=== PATIENT | female | born 1990 | race Caucasian/White ===

== ENCOUNTER 2016-11-12 09:17 | Emergency (ER) | payer OTHER | END 2016-11-12 11:26 | disposition left against medical advice (07) | LOC: UCEAST 09:17 | DX: T14.8 Other injury of unspecified body region (principal); W57.XXXA Bitten or stung by nonvenomous insect and other nonvenomous arthropods, initial encounter; Y93.9 Activity, unspecified; Y92.9 Unspecified place or not applicable; Z53.21 Procedure and treatment not carried out due to patient leaving prior to being seen by health care provider ==

== ENCOUNTER 2016-11-12 12:58 | Emergency (ER) | payer BC, OTHER ==
[2016-11-12 15:03] VITALS: BP 129/85
--- NOTE | 2016-11-12 15:17 | ED ---
Upper Extremity Pain - HPI Summary HPI Summary: 26F presents with lesion on right thumb since Tuesday. She states the area was itchy on Tuesday but she did not see a tick. She states the redness around the lesion. She denies any rash or fever. She did not see a tick but is concerned it was a tick bite. - History of Current Complaint Chief Complaint: UCSkin Stated Complaint: TICK BITE Time Seen by Provider: 11/12/16 15:05 Hx Last Menstrual Period: 11/04/16 - Allergies/Home Medications Allergies/Adverse Reactions: Allergies Allergy/AdvReac Type Severity Reaction Status Date / Time seasonal allergy Allergy Congestion Uncoded 06/02/14 16:00 Home Medications: Home Medications Multiple Vitamin [Multi Vitamin] 1 tab PO DAILY 11/12/16 [History Confirmed ] Vitamin B Complex TAB* [Complex B-100*] 1 tab PO DAILY 11/12/16 [History Confirmed 11/12/16] Vitamin D 1 tab PO DAILY 11/12/16 [History Confirmed 11/12/16] PMH/Surg Hx/FS Hx/Imm Hx Endocrine/Hematology History: Denies: Hx Diabetes, Hx Thyroid Disease Cardiovascular History: Denies: Hx Hypertension Respiratory History: Denies: Hx Asthma, Hx Chronic Obstructive Pulmonary Disease (COPD) GI History: Denies: Hx Ulcer - Surgical History Surgery Procedure, Year, and Place: ~2004 right inquinal hernia Infectious Disease History: No Infectious Disease History: Denies: Hx Clostridium Difficile, Hx Hepatitis, Hx Human Immunodeficiency Virus (HIV), Hx of Known/Suspected MRSA, Hx Shingles, Hx Tuberculosis, Hx Known/ Suspected VRE, Hx Known/Suspected VRSA, History Other Infectious Disease, Traveled Outside the [place] in Last 30 Days - Family History Known Family History: Positive: Hypertension - Social History Alcohol Use: Occasionally Substance Use Type: Reports: None Smoking Status (MU): Never Smoked Tobacco Review of Systems Negative: Fever Negative: Chest Pain Negative: Shortness Of Breath Positive: Other - lesion right thumb All Other Systems Reviewed And Are Negative: Yes Physical Exam Triage Information Reviewed: Yes Vital Signs On Initial Exam: Initial Vitals Temp Pulse Resp BP Pulse Ox 99.3 F 92 18 129/85 99 11/12/16 14:59 11/12/16 14:59 11/12/16 14:59 11/12/16 14:59 11/12/16 14:59 Vital Signs Reviewed: Yes Appearance: Positive: Well-Appearing Skin: Positive: Warm, Dry, Other - follicular lesion on right thumb with no surrounding erythema. Head/Face: Positive: Normal Head/Face Inspection Eyes: Positive: Normal, Conjunctiva Clear Respiratory/Lung Sounds: Positive: Clear to Auscultation, Breath Sounds Present Cardiovascular: Positive: Normal, RRR Diagnostics - Vital Signs Vital Signs Temp Pulse Resp BP Pulse Ox 11/12/16 14:59 99.3 F 92 18 129/85 99 - Laboratory Lab Statement: Any lab studies that have been ordered have been reviewed, and results considered in the medical decision making process. Course/Dx - Course Course Of Treatment: 26F presents with lesion on right thumb that is concerned is tick bite. She did not see a tick. the area was seen on Tuesday. the area appears like a folliculitis. It is also to far out of the window to treat if it was a tick bite. told to watch area and if sees rash to return. will have do warm compresses for folliculitis as surrounding area does not appear to be infected. patient understands and agrees with plan - Diagnoses Differential Diagnosis/HQI/PQRI: Positive: Other - lyme disease, folliculitis, bug bite, tick bite Provider Diagnoses: Skin lesion of hand Discharge - Discharge Plan Condition: Good Disposition: HOME Patient Education Materials: Folliculitis (ED) Referrals: Ascencion Villarreal MD [Primary Care Provider] - Additional Instructions: Place warm compresses on area Can place neosporin on area Return to Urgent care if redness spreads, develops ring like rash, fever, or any new or worsening symptoms
== END 2016-11-12 15:30 | disposition home or self-care (01) ==
LOC: UCEAST 12:58
DX: L98.9 Disorder of the skin and subcutaneous tissue, unspecified (principal)
CPT/HCPCS: 99211; G0463

== ENCOUNTER 2017-03-22 14:35 | Emergency (ER) | payer BC ==
[2017-03-22 15:02] VITALS: BP 140/81
--- NOTE | 2017-03-22 15:45 | UC ---
UC General HPI - HPI Summary HPI Summary: PT WOKE UP THIS MORNING AND FELT "OFF". OVER THE COURSE OF THE DAY STARTED TO FEEL WORSE. NECK AND BACK PAIN, FELT WEAK, NAUSEATED. HEAD WAS HEAVY. COULDN'T WALK UP THE STAIRS AT WORK. HAD TO SIT DOWN. ATE SOME YOGURT THINKING SHE WOULD FEEL BETTER IF SHE ATE SOMETHING - SHE DID NOT. PT DOES HAVE ANXIETY AND HAS PANIC ATTACKS ON OCCASION. SHE IS NOT ON MEDS FOR THIS. STATES THIS FELT DIFFERENT FROM HER ANXIETY. HAS BEEN ON VALTREX FOR GENITAL HSV FOR 2-3 DAYS. - History of Current Complaint Chief Complaint: UCGeneralIllness Stated Complaint: WEAKNESS Time Seen by Provider: 03/22/17 14:53 Hx Obtained From: Patient Hx Last Menstrual Period: 03/17/17 Onset/Duration: Sudden Onset, Lasting Hours, Still Present Timing: Constant Onset Severity: Moderate Current Severity: Moderate Pain Intensity: 5 Associated Signs & Symptoms: Positive: Nausea, Weakness - Allergy/Home Medications Allergies/Adverse Reactions: Allergies Allergy/AdvReac Type Severity Reaction Status Date / Time seasonal allergy Allergy Congestion Uncoded 06/02/14 16:00 PMH/Surg Hx/FS Hx/Imm Hx Psychological History: Anxiety - Surgical History Surgical History: Yes Surgery Procedure, Year, and Place: ~2004 right inquinal hernia - Family History Known Family History: Positive: Hypertension - Social History Alcohol Use: Occasionally Substance Use Type: None Smoking Status (MU): Never Smoked Tobacco - Immunization History Most Recent Tetanus Shot: Thinks so Review of Systems Constitutional: Fatigue Respiratory: Negative Cardiovascular: Negative Gastrointestinal: Nausea Genitourinary: Negative Motor: Weakness Neurological: Weakness Psychological: Anxious All Other Systems Reviewed And Are Negative: Yes Physical Exam Triage Information Reviewed: Yes Appearance: Well-Appearing, No Pain Distress, Well-Nourished Vital Signs: Initial Vital Signs Temp 98.0 F 03/22/17 14:55 Pulse 86 03/22/17 14:55 Resp 16 03/22/17 14:55 BP 140/81 03/22/17 14:55 Pulse Ox 100 03/22/17 14:55 Vital Signs Reviewed: Yes Eyes: Positive: Conjunctiva Clear ENT: Positive: Hearing grossly normal Neck: Positive: Supple Respiratory Exam: Normal Cardiovascular Exam: Normal Abdomen Description: Positive: Nontender, Soft Musculoskeletal: Positive: No Edema Neurological: Positive: Alert Psychological: Positive: Normal Response To Family, Age Appropriate Behavior Skin: Negative: rashes Diagnostics - EKG Cardiac Rate: NL Cardiac Rhythm: Sinus: Normal - borderline prolonged QT Ectopy: None ST Segment: Normal Course/Dx - Course Course Of Treatment: PT TO GO DIRECTLY [place] [facility] [place] FOR FURTHER EVALUATION. WOULD LIKELY BENEFIT FROM LABS, REPEAT EKG. EKG WITH BORDER LINE PROLONGED QT. IS TAKING VALTREX FOR GENITAL HSV. NO OTHER NEW MEDS. - Differential Dx - Multi-Symptom Provider Diagnoses: WEAKNESS/MALAISE Discharge - Discharge Plan Condition: Stable Disposition: OTHER Discharge Disposition Comment: TO [facility] PR[facility] CAR Patient Education Materials: Weakness (ED) Referrals: No Primary Care Phys,NOPCP [Primary Care Provider] - Additional Instructions: GO DIRECTLY TO [place] [facility] [place] FOR FURTHER EVALUATION. CALL THE NUMBER BELOW FOR ASSISTANCE IN ESTABLISHING WITH A PCP An additional resource available to assist in finding the appropriate physician for your health care needs is the [facility] ([facility]). You may contact them by calling [phone].
== END 2017-03-22 15:56 ==
LOC: UCEAST 14:35
DX: R53.1 Weakness (principal); R53.81 Other malaise; R11.0 Nausea; F41.9 Anxiety disorder, unspecified
CPT/HCPCS: 99212; G0463

== ENCOUNTER → 2017-03-22 16:38 | Emergency (ER) | payer BC ==
[~2017-03-22 16:38] MED LIST: NS 0.9% 1000 ML* 1,000 ML IV ONE
--- NOTE | 2017-03-22 19:12 | ED ---
Complex/Multi-Sys Presentation - History Of Current Complaint Chief Complaint: EDGeneral Time Seen by Provider: 03/22/17 18:08 - Allergies/Home Medications Allergies/Adverse Reactions: Allergies Allergy/AdvReac Type Severity Reaction Status Date / Time seasonal allergy Allergy Congestion Uncoded 03/22/17 18:03 PMH/Surg Hx/FS Hx/Imm Hx Endocrine/Hematology History: Denies: Hx Diabetes, Hx Thyroid Disease Cardiovascular History: Denies: Hx Hypertension Respiratory History: Denies: Hx Asthma, Hx Chronic Obstructive Pulmonary Disease (COPD) GI History: Denies: Hx Ulcer - Surgical History Surgery Procedure, Year, and Place: ~2004 right inquinal hernia Infectious Disease History: No Infectious Disease History: Denies: Hx Clostridium Difficile, Hx Hepatitis, Hx Human Immunodeficiency Virus (HIV), Hx of Known/Suspected MRSA, Hx Shingles, Hx Tuberculosis, Hx Known/ Suspected VRE, Hx Known/Suspected VRSA, History Other Infectious Disease, Traveled Outside the [place] in Last 30 Days - Family History Known Family History: Positive: Hypertension - Social History Alcohol Use: Occasionally Substance Use Type: Reports: None Smoking Status (MU): Never Smoked Tobacco Physical Exam Vital Signs On Initial Exam: Initial Vitals Temp Pulse Resp BP Pulse Ox 98.5 F 96 20 160/84 100 03/22/17 16:45 03/22/17 16:45 03/22/17 16:45 03/22/17 16:45 03/22/17 16:45 - [place] Coma Scale Coma Scale Total: 15 Diagnostics - Vital Signs Vital Signs Temp Pulse Resp BP Pulse Ox 03/22/17 18:37 17 03/22/17 18:36 131/94 03/22/17 18:00 98.5 F 83 16 149/76 99 03/22/17 16:45 98.5 F 96 20 160/84 100 - Laboratory Result Diagrams: 03/22/17 19:21 03/22/17 19:21 Lab Statement: Any lab studies that have been ordered have been reviewed, and results considered in the medical decision making process. - EKG EKG Cardiac Rate: NL EKG Rhythm: Sinus Rhythm ST Segment: Normal Ectopy: None EKG Interpretation: NSR, short AR interval, No STEMI Complex Multi-Symp Course/Dx - Diagnoses Provider Diagnoses: Weakness, Panic attack Discharge - Discharge Plan Condition: Stable Disposition: HOME Patient Education Materials: Weakness (ED), Panic Attack (ED) Referrals: [facility] REFERRAL [Outside] No Primary Care Phys,NOPCP [Primary Care Provider] - Additional Instructions: Drink plenty of fluids and rest. Make an appointment to follow up with primary care provider. IF new symptoms develop or symptoms return/worsen please seek medical attention promptly.
[2017-03-22 19:28] LABS: Hematocrit 43 % (35-47); Hemoglobin 14.5 g/dl (12.0-16.0); Mean Corpuscular HGB Conc 33 g/dl (31-36); Mean Corpuscular Hemoglobin 28 pg (27-31); Mean Corpuscular Volume 84 fL (80-97); Mean Platelet Volume 8 um3 (7.4-10.4); Red Blood Count 5.16 10^6/ul (4.0-5.4); Red Cell Distribution Width 13 % (10.5-15); White Blood Count 12.5 10^3/ul (3.5-10.8)
[2017-03-22 19:52] LABS: ALT 15 U/L (7-52); AST 14 U/L (13-39); Albumin 4.6 g/dL (3.2-5.2); Alkaline Phosphatase 93 U/L (34-104); Anion Gap 8 mmol/L (2-11); BUN/Creatinine Ratio 16.2 (8-20); Blood Urea Nitrogen 12 mg/dL (6-24); CO2 Carbon Dioxide 27 mmol/L (22-32); Calcium 10.1 mg/dL (8.6-10.3); Chloride 101 mmol/L (101-111); EGFR African American 121.1 (>60); EGFR Non-African American 94.1 (>60); Globulin 3.2 g/dL (2-4); Glucose 102 mg/dL (70-100); Potassium 3.9 mmol/L (3.5-5.0); Sodium 136 mmol/L (133-145); Total Protein 7.8 g/dL (6.4-8.9)
[2017-03-22 20:05] LABS: TSH (Thyroid Stimulating Horm) 1.16 mcIU/mL (0.34-5.60)
[2017-03-22 20:42] VITALS: BP 147/97
== END | disposition home or self-care (01) ==
LOC: ED 16:38
DX: F41.0 Panic disorder [episodic paroxysmal anxiety] (principal); R53.1 Weakness; R42 Dizziness and giddiness
CPT/HCPCS: 36415; 80053; 83735; 84443; 84484; 84702; 85025; 86618; 93005; 99282

== ENCOUNTER → 2017-08-30 12:34 | Emergency (ER) | payer BC ==
[2017-08-30 12:40] VITALS: BP 157/94
== END | disposition home or self-care (01) ==
LOC: ED 12:34
DX: R11.0 Nausea (principal); Z53.21 Procedure and treatment not carried out due to patient leaving prior to being seen by health care provider
CPT/HCPCS: 93005

== ENCOUNTER 2017-09-13 09:24 | Emergency (ER) | payer BC ==
--- NOTE | 2017-09-13 11:03 | UC ---
FLU HPI - HPI Summary HPI Summary: 27 y/o female presents to the urgent care c/o sore throat, dry cough, nasal congestion w/ clear nasal discharge, since 09/09/2017. Pt reports yesterday she developed decrease appetite, fatigue and body aches. She feels a burning pain in her mid chest when she coughs. Pain is 4/10. Pt has taken Coricidin and cough drops to alleviate symptoms. pt denies SOB, chest pain, abdominal pain, N/ V/D. - History of Current Complaint Chief Complaint: UCGeneralIllness Stated Complaint: COUGH, AND CHEST CONGESTION Time Seen by Provider: 09/13/17 10:47 Hx Obtained From: Patient Hx Last Menstrual Period: 08/24/17 ?: No Onset/Duration: Gradual Onset, Lasting Days - 3 days, Still Present, Worse Since - yesterday Severity Currently: Mild Severity Initially: Mild Pain Intensity: 4 Pain Scale Used: 0-10 Numeric Associated Signs & Symptoms: Positive: Myalgia, Cough, Sore Throat, Nasal Congestion. Negative: Fever - Risk Factors Influenza Risk Factors: Negative - Allergy/Home Medications Allergies/Adverse Reactions: Allergies Allergy/AdvReac Type Severity Reaction Status Date / Time seasonal allergy Allergy Congestion Uncoded 09/13/17 09:43 Home Medications: Home Medications Cholecalciferol TAB* [Vitamin D TAB*] 1 tab PO DAILY 09/13/17 [History Confirmed 09/13/17] Cyanocobalamin (Vitamin B-12) [Vitamin B-12] 1 tab PO DAILY 09/13/17 [History Confirmed 09/13/17] Lisdexamfetamine Dimesylate [Vyvanse] 1 tab PO DAILY 09/13/17 [History Confirmed 09/13/17] Multivitamin [Multivitamins] 1 tab PO DAILY 09/13/17 [History Confirmed 09/13/17 ] Sertraline* [Zoloft*] 1 tab PO BEDTIME 09/13/17 [History Confirmed 09/13/17] buPROPion TAB* [Wellbutrin TAB*] 300 mg PO DAILY 09/13/17 [History Confirmed ] PMH/Surg Hx/FS Hx/Imm Hx Previously Healthy: Yes Psychological History: Anxiety, Depression Other Psychological History: ADHD - Surgical History Surgical History: Yes Surgery Procedure, Year, and Place: 2005 right inquinal hernia - Family History Known Family History: Positive: Hypertension, Diabetes - Social History Occupation: Employed Full-time Lives: With Family Alcohol Use: Occasionally Substance Use Type: None Smoking Status (MU): Never Smoked Tobacco - Immunization History Most Recent Tetanus Shot: Thinks so Review of Systems Constitutional: Chills, Fatigue, Other - body aches Skin: Negative Eyes: Negative ENT: Sore Throat, Nasal Discharge, Sinus Congestion Respiratory: Cough Cardiovascular: Negative Gastrointestinal: Negative Genitourinary: Negative Motor: Negative Neurovascular: Negative Musculoskeletal: Negative Neurological: Headache Is Patient Immunocompromised?: No All Other Systems Reviewed And Are Negative: Yes Physical Exam Triage Information Reviewed: Yes Vital Signs: Initial Vital Signs Temp 99.3 F 09/13/17 09:47 Pulse 106 09/13/17 09:47 Resp 22 09/13/17 09:47 BP 141/92 09/13/17 09:47 Pulse Ox 100 09/13/17 09:47 - Additional Comments VITAL SIGNS: Reviewed. GENERAL: Patient is a well developed and nourished female who is sitting comfortable in the examining table. Patient is not in any acute respiratory distress. HEAD AND FACE: No signs of trauma. No ecchymosis, hematomas or skull depressions. No sinus tenderness. edematous erythematous nasal mucosa with yellowish discharge, EYES: PERRLA, EOMI x 2, No injected conjunctiva, clear watery eyes, no nystagmus. No photophobia. EARS: Hearing grossly intact. Ear canals and tympanic membranes are within normal limits. MOUTH: Positive pharynx with erythema, no exudates,no palatal petechiae. no B/ L tonsillar enlargement Uvula in midline. NECK: Supple, trachea is midline, Positive anterior cervical lymphadenopathy, no JVD, no carotid bruit, no c-spine tenderness, neck with full ROM. No meningeal signs, no Kernig's or brudzinskis signs. CHEST: Symmetric, no tenderness at palpation LUNGS: Clear to auscultation bilaterally. No wheezing or crackles. CVS: Regular rate and rhythm, S1 and S2 present, no murmurs or gallops appreciated. ABDOMEN: Soft, non-tender. No signs of distention. No rebound no guarding, and no masses palpated. Bowel sounds are normal. EXTREMITIES: FROM in all major joints, no edema, no cyanosis or clubbing. NEURO: Alert and oriented x 3. No acute neurological deficits. Speech is normal and follows commands. SKIN: Dry and warm Flu Course/Dx - Course Course Of Treatment: 27 y/o female presents to the urgent care c/o sore throat, dry cough, nasal congestion w/ clear nasal discharge, since 09/09/2017. Pt reports yesterday she developed decrease appetite, fatigue and body aches. She feels a burning pain in her mid chest when she coughs. Pain is 4/10. Pt has taken Coricidin and cough drops to alleviate symptoms. pt denies SOB, chest pain , abdominal pain, N/V/D. Hx obtained.Pt with URI on examination. Rapid strep ordered, result: negative.Influenza A&B ordered: negative.Pt W/ hx of GERD. Pt RX Omeprazole PO to alleviate symptoms. Advised to continue taking Tylenol PO. Advised on hand washin, rest, increase fluid intake, eat well and avoid strenuous exercise. If symptoms do not improve or worsen advised to return to the urgent care or f/u with her PCP for further evaluation and treatment.Pt's BP is elevated today advised to decrease salt in diet, monitor BP and f/u with PCP for further management. Pt understood and agreed with plan of care. - Differential Dx/Diagnosis Differential Diagnosis/HQI/PQRI: Bronchitis, Influenza, Pneumonia, Upper Respiratory Infection Provider Diagnoses: 1- Upper respiratory infection. 2-GERD. 3-Elevated BP w/o Hx of HTN Discharge - Discharge Plan Condition: Stable Disposition: HOME Prescriptions: Omeprazole CAP* [Prilosec CAP* 20 MG] 20 mg PO DAILY #30 cap. Patient Education Materials: Upper Respiratory Infection (ED), Gastroesophageal Reflux Disease (ED), Low-Sodium Diet (ED) Forms: *Work Release Referrals: Mira John NP [Primary Care Provider] - 3 Days Additional Instructions: 1-Please take Tyelenol PO q6-8hrs prn as instructed after meals to alleviate pain and swelling of your throat. Increase fluid intake, eat well, rest and avoid strenuous exercise 2-Take Omprazole PO as directed to alleviate symptoms. Avoid long period w/o eating anything. avoid spicy food, chocolates, tomato sauce, citrus fruits etc. 3-Take Delsym PO to alleviate cough. 4-If symptoms do not improve or worsen please return to the urgent care or f/u with your PCP for further evaluation and treatment. 5-Your BP is elevated today. please decrease salt in your diet, monitor BP and if it continues to be elevated please f/u with your PCP for further management
[2017-09-13 12:02] VITALS: BP 143/80
== END 2017-09-13 12:01 | disposition home or self-care (01) ==
LOC: UCEAST 09:24
DX: J06.9 Acute upper respiratory infection, unspecified (principal); K21.9 Gastro-esophageal reflux disease without esophagitis; R03.0 Elevated blood-pressure reading, without diagnosis of hypertension; F90.9 Attention-deficit hyperactivity disorder, unspecified type; F41.9 Anxiety disorder, unspecified; F32.9 Major depressive disorder, single episode, unspecified
CPT/HCPCS: 87502; 87651; 99212; G0463

== ENCOUNTER 2018-03-20 07:54 | Emergency (ER) | payer BC ==
[2018-03-20 08:06] VITALS: BP 136/80
--- NOTE | 2018-03-20 08:16 | UC ---
Abdominal Pain Female HPI - HPI Summary HPI Summary: This pt is a 27 y/o female accompanied by her fiance presenting to [facility] c/o abdominal pain, nausea, intermittent diarrhea for the past 3 days. Pt reports she has had constant diarrhea and abd pain since 03:00 today. Diarrhea is not bloody or black. Pt describes her abd pain initially as cramping diffusely but today her pain is more constant, described as "twisting" uncomfortable pain mostly located on the lower are of her abd. She additionally notes bloating and chills between hot and cold, but she has not taken her temperature. Pt took Tums last night with no relief. Denies dysuria, vaginal discharge or itching, new back pain, sinus pain, ear pain. She denies recent out of the country travel or sick contacts. No recent antibiotics. Pt drinks alcohols 2 to 3 times a week. She is getting on . She is currently on her period and denies concerns for . Patients medication reviewed this visit. - History of Current Complaint Chief Complaint: UCAbdominalPain Stated Complaint: NAUGSEA Time Seen by Provider: 03/20/18 08:09 Hx Obtained From: Patient, Family/Coverer - fiance Hx Last Menstrual Period: now Onset/Duration: Lasting Days - 3, Still Present Timing: Constant Severity Currently: Moderate Pain Intensity: 6 Pain Scale Used: 0-10 Numeric Location: Suprapubic Radiates: No Character: Cramping Aggravating Factor(s): Nothing Alleviating Factor(s): Nothing Associated Signs and Symptoms: Positive: Nausea, Diarrhea - intermittent, Other : - POSITIVE: chills, bloating. Negative: Fever, Back Pain - denies new back pain, Blood in Stool, Urinary Symptoms, Vaginal Bleeding, Vaginal Discharge, Vomiting Allergies/Adverse Reactions: Allergies Allergy/AdvReac Type Severity Reaction Status Date / Time seasonal allergy Allergy Congestion Uncoded 03/20/18 08:26 PMH/Surg Hx/FS Hx/Imm Hx Previously Healthy: Yes Psychological History: Anxiety, Depression - Surgical History Surgical History: Yes Surgery Procedure, Year, and Place: 2004 right inquinal hernia - Family History Known Family History: Positive: Hypertension, Diabetes Family History: Mother: fibroids. Aunt: ruptured ovarian cyst - Social History Occupation: Employed Full-time Alcohol Use: Occasionally Substance Use Type: None Smoking Status (MU): Never Smoked Tobacco - Immunization History Most Recent Tetanus Shot: Thinks so Review of Systems Constitutional: Chills, Other - DENIES: fever Skin: Negative Eyes: Negative ENT: Negative Respiratory: Negative Cardiovascular: Negative Gastrointestinal: Abdominal Pain, Diarrhea, Nausea, Other - POS: bloating. NEG: vomiting Genitourinary: Negative Motor: Negative Neurovascular: Negative Musculoskeletal: Negative Neurological: Negative Psychological: Negative All Other Systems Reviewed And Are Negative: Yes Physical Exam - Summary Physical Exam Summary: Vital Signs Reviewed: Yes A+Ox3, tired appearing, discomfort Eyes: Conjunctiva Clear, JILL. EOM intact and full ENT: Hearing grossly normal TM x 2 clear, mmpasty, uvula midline, no exudate, no erythema Neck: Positive: Supple Respiratory: Positive: No respiratory distress, No accessory muscle use + CTA throughout no w/r Cardiovascular: RRR nl s1, s2 no m/r CBT <2 sec abd soft +/decreased BS + TTP lower quads R>L no guarding, soft obvious discomfort with movement, position change Musculoskeletal Exam: SANDERS x 4 without difficulty Strength Intact, ROM Intact Neurological: Positive: Alert, + sensation throughout Psychological: Positive: Normal Response To Family Skin: Positive: no rash, no ecchymosis, pallor Triage Information Reviewed: Yes Vital Signs: Initial Vital Signs Temp 98.9 F 03/20/18 08:04 Pulse 86 03/20/18 08:04 Resp 18 03/20/18 08:04 BP 136/80 03/20/18 08:04 Pulse Ox 100 03/20/18 08:04 Abd Pain Female Course/Dx - Course Course Of Treatment: Pt presents with 3 days progressiv nausea, abd pain, and diarrhea. Pt states progressive and steady since 3am. No relief with Tums. no sick contact. No others with same sx. Pt with pallor and appears uncomfortable. Pt with diffuse lower abd pain R>L. D/w pt and fiance - recommend pt to ED for further evaluation. pt aware evaluation will be ad discretion of ED provider. Fiancee to drive Pt declines Zofran. - Differential Dx/Diagnosis Provider Diagnoses: Acute abdominal pain Discharge - Sign-Out/Discharge Documenting (check all that apply): Patient Departure - discharge All imaging exams completed and their final reports reviewed: No Studies - Discharge Plan Condition: Stable Disposition: HOME-RECOMMEND TO ED Patient Education Materials: Acute Abdominal Pain (ED) Referrals: Mira John NP [Primary Care Provider] - Additional Instructions: The doctor that evaluated you today thinks that you need additional testing that can be completed the emergency department. It is recommended that you go directly to emergency department for further evaluation. This evaluation may include blood work or imaging. This testing will be directed and decided by the provider that evaluates you at the emergency department. If pain becomes worse, you feel lightheaded, you have uncontrolled vomiting, or you have any other concerns while you are being driven to emergency department as recommended to pullover and contact 911. - Billing Disposition and Condition Condition: STABLE Disposition: Home-Recommend to ED - Attestation Statements Document Initiated by Lucia: Yes Documenting Scribe: Jacinda Rodriguez Provider For Whom Lucia is Documenting (Include Credential): Charlee Pryor MD Scribe Attestation: Jacinda Strickland, scribed for Charlee Pryor MD on 03/20/18 at 0829. Scribe Documentation Reviewed: Yes Provider Attestation: The documentation as recorded by the Jacinda bertrand accurately reflects the service I personally performed and the decisions made by me, Charlee Pryor MD
== END 2018-03-20 08:25 | disposition home health service (06) ==
LOC: UCEAST 07:54
DX: R10.30 Lower abdominal pain, unspecified (principal); R11.0 Nausea; R19.7 Diarrhea, unspecified
CPT/HCPCS: 99212; G0463

== ENCOUNTER 2018-03-20 08:46 | Emergency (ER) | payer BC ==
[2018-03-20] MEDS ORDERED: NS 0.9% 1000 ML* 1,000 ML IV ONE ×2 (09:45→10:48)
[2018-03-20 09:58] LABS: ABS Basophils 0 10^3/ul (0-0.2); ABS Eosinophils 0 10^3/ul (0-0.6); ABS Lymphocytes 1.3 10^3/ul (1.0-4.8); ABS Monocytes 0.6 10^3/ul (0-0.8); ABS Neutrophils 6.9 10^3/ul (1.5-7.7); ABS Nucleated RBC 0 10^3/ul; Eosinophil % 0.3 % (0-6); Hematocrit 48 % (35-47); Hemoglobin 15.8 g/dl (12.0-16.0); Lymphocyte % 14.9 % (25-47); Mean Corpuscular HGB Conc 33 g/dl (31-36); Mean Corpuscular Hemoglobin 29 pg (27-31); Mean Corpuscular Volume 87 fL (80-97); Mean Platelet Volume 7.4 um3 (7.4-10.4); Nucleated Red Blood Cells % 0.2; Platelet Count 330 10^3/ul (150-450); Red Blood Count 5.44 10^6/ul (4.00-5.40); Red Cell Distribution Width 12 % (10.5-15); White Blood Count 8.8 10^3/ul (3.5-10.8)
[2018-03-20 10:16] LABS: EGFR Non-African American 99.6 (>60)
[2018-03-20 10:17] LABS: Urine Appearance Clear; Urine Blood 1+ (Negative); Urine Color Straw; Urine Ketones Negative (Negative); Urine Protein Negative (Negative); Urine Red Blood Cell Trace(0-2/hpf) (Absent); Urine Specific Gravity 1.004 (1.010-1.030); Urine Urobilinogen Negative (Negative); Urine White Blood Cell Absent (Absent)
[2018-03-20 12:16] VITALS: BP 117/63
--- NOTE | 2018-03-20 17:48 | ED ---
Nausea/Vomiting/Diarrhea HPI - HPI Summary HPI Summary: Patient is a 27-year-old female presenting to the ED with a 3 day history of profuse watery diarrhea. She denies sick contacts, water contamination, travel , camping trips or immunocompromised state. She states she has been feeling otherwise well. She takes no medication and has not been on antibiotics recently. She states she began to have profuse diarrhea 3 days ago upon awakening and has been having approximately 20-30 bouts per day. She also feels dehydrated. She denies any nausea, vomiting. Endorses cramping to the abdomen and bloating. Denies any urinary symptoms or back pain. Denies any fevers, sweats, chills. - History of Current Complaint Chief Complaint: EDAbdPain Stated Complaint: ABD PAIN/MORE ON LEFT SIDE/NAUSEOUS Time Seen by Provider: 03/20/18 09:20 Hx Obtained From: Patient Hx Last Menstrual Period: now ?: No Onset/Duration: Sudden Onset Timing: Constant Severity Initially: Mild Severity Currently: Mild Pain Intensity: 3 Pain Scale Used: 0-10 Numeric Character: Cramping Aggravating Factor(s): Nothing Alleviating Factor(s): Nothing Nausea/Vomiting Presence: None Diarrhea Presence: Yes Diarrhea Frequency: Every 15-60 minutes Diarrhea Duration: 24-36 hours Diarrhea Characteristics: Watery, Malodorous - Risk Factors Influenza Risk Factors: Negative Surgical Obstruction Risk Factor(s): Negative - Allergies/Home Medications Allergies/Adverse Reactions: Allergies Allergy/AdvReac Type Severity Reaction Status Date / Time seasonal allergy Allergy Congestion Uncoded 03/20/18 09:22 PMH/Surg Hx/FS Hx/Imm Hx Previously Healthy: Yes Endocrine/Hematology History: Denies: Hx Diabetes, Hx Thyroid Disease Cardiovascular History: Denies: Hx Hypertension Respiratory History: Denies: Hx Asthma, Hx Chronic Obstructive Pulmonary Disease (COPD) GI History: Denies: Hx Ulcer - Surgical History Surgery Procedure, Year, and Place: 2004 right inquinal hernia - Immunization History Hx Pertussis Vaccination: No Immunizations Up to Date: Yes Infectious Disease History: No Infectious Disease History: Denies: Hx Clostridium Difficile, Hx Hepatitis, Hx Human Immunodeficiency Virus (HIV), Hx of Known/Suspected MRSA, Hx Shingles, Hx Tuberculosis, Hx Known/ Suspected VRE, Hx Known/Suspected VRSA, History Other Infectious Disease, Traveled Outside the [place] in Last 30 Days - Family History Known Family History: Positive: Hypertension, Diabetes Family History: Mother: fibroids. Aunt: ruptured ovarian cyst - Social History Occupation: Employed Full-time Lives: With Family Alcohol Use: Occasionally Hx Substance Use: No Substance Use Type: Reports: None Hx Tobacco Use: No Smoking Status (MU): Never Smoked Tobacco Review of Systems Constitutional: Negative Negative: Fever, Chills, Fatigue, Skin Diaphoresis Negative: Palpitations, Chest Pain Negative: Shortness Of Breath, Cough Positive: Abdominal Pain, Diarrhea. Negative: Vomiting, Nausea Genitourinary: Negative Positive: no symptoms reported, see HPI Negative: Arthralgia, Myalgia Skin: Negative Neurological: Negative All Other Systems Reviewed And Are Negative: Yes Physical Exam Triage Information Reviewed: Yes Vital Signs On Initial Exam: Initial Vitals Temp Pulse Resp BP Pulse Ox 97.4 F 81 19 125/61 97 03/20/18 08:54 03/20/18 08:54 03/20/18 08:54 03/20/18 08:54 03/20/18 08:54 Vital Signs Reviewed: Yes Appearance: Positive: Well-Appearing, Well-Nourished Skin: Positive: Warm, Skin Color Reflects Adequate Perfusion Head/Face: Positive: Normal Head/Face Inspection Eyes: Positive: EOMI, JILL, Conjunctiva Clear Neck: Positive: Supple Respiratory/Lung Sounds: Positive: Clear to Auscultation, Breath Sounds Present Cardiovascular: Positive: RRR, Pulses are Symmetrical in both Upper and Lower Extremities Abdomen Description: Positive: Soft, Distended Bowel Sounds: Positive: Hyperactive Pelvic Exam: Positive: Other - Tenderness throughout and bloating Musculoskeletal: Positive: Normal, Strength/ROM Intact Neurological: Positive: Alert, Oriented to Person Place, Time Psychiatric: Positive: Normal, Affect/Mood Appropriate Diagnostics - Vital Signs Vital Signs Temp Pulse Resp BP Pulse Ox 03/20/18 12:15 97.9 F 78 18 117/63 99 03/20/18 11:00 74 99 03/20/18 10:12 71 98 03/20/18 10:10 72 122/72 97 03/20/18 08:54 97.4 F 81 19 125/61 97 - Laboratory Lab Results: Lab Results 03/20/18 03/20/18 03/20/18 Range/Units 09:46 09:46 09:46 WBC 8.8 (3.5-10.8) 10^3/ul RBC 5.44 H (4.00-5.40) 10^6/ul Hgb 15.8 (12.0-16.0) g/dl Hct 48 H (35-47) % MCV 87 (80-97) fL MCH 29 (27-31) pg MCHC 33 (31-36) g/dl RDW 12 (10.5-15) % Plt Count 330 (150-450) 10^3/ul MPV 7.4 (7.4-10.4) um3 Neut % (Auto) 77.7 (38-83) % Lymph % (Auto) 14.9 L (25-47) % [place] % (Auto) 6.9 (0-7) % Eos % (Auto) 0.3 (0-6) % Baso % (Auto) 0.2 (0-2) % Absolute Neuts (auto) 6.9 (1.5-7.7) 10^3/ul Absolute Lymphs (auto) 1.3 (1.0-4.8) 10^3/ul Absolute Monos (auto) 0.6 (0-0.8) 10^3/ul Absolute Eos (auto) 0 (0-0.6) 10^3/ul Absolute Basos (auto) 0 (0-0.2) 10^3/ul Absolute Nucleated RBC 0 10^3/ul Nucleated RBC % 0.2 Sodium 134 L (135-145) mmol/L Potassium TNP Chloride 107 (101-111) mmol/L Carbon Dioxide 22 (22-32) mmol/L Anion Gap 5 (2-11) mmol/L BUN 12 (6-24) mg/dL Creatinine 0.70 (0.51-0.95) mg/dL Est GFR ( Amer) 120.6 (>60) Est GFR (Non-Af Amer) 99.6 (>60) BUN/Creatinine Ratio 17.1 (8-20) Glucose 101 H (70-100) mg/dL Lactic Acid 1.4 (0.5-2.0) mmol/L Calcium 9.1 (8.6-10.3) mg/dL Total Bilirubin 0.20 (0.2-1.0) mg/dL AST TNP ALT 29 (7-52) U/L Alkaline Phosphatase 72 (34-104) U/L C-Reactive Protein 11.08 H (<8.01) mg/L Total Protein 7.1 (6.4-8.9) g/dL Albumin 4.3 (3.2-5.2) g/dL Globulin 2.8 (2-4) g/dL Albumin/Globulin Ratio 1.5 (1-3) Lipase 18 (11.0-82.0) U/L Beta HCG, Quant < 0.60 mIU/mL Urine Color Urine Appearance Urine pH (5-9) Ur Specific [place] (1.010-1.030) Urine Protein (Negative) Urine Ketones (Negative) Urine Blood (Negative) Urine Nitrate (Negative) Urine Bilirubin (Negative) Urine Urobilinogen (Negative) Ur Leukocyte Esterase (Negative) Urine WBC (Auto) (Absent) Urine RBC (Auto) (Absent) Ur Squamous Epith Cells (Absent) Urine Bacteria (Absent) Urine Glucose (Negative) 03/20/18 03/20/18 Range/Units 09:47 10:25 WBC (3.5-10.8) 10^3/ul RBC (4.00-5.40) 10^6/ul Hgb (12.0-16.0) g/dl Hct (35-47) % MCV (80-97) fL MCH (27-31) pg MCHC (31-36) g/dl RDW (10.5-15) % Plt Count (150-450) 10^3/ul MPV (7.4-10.4) um3 Neut % (Auto) (38-83) % Lymph % (Auto) (25-47) % [place] % (Auto) (0-7) % Eos % (Auto) (0-6) % Baso % (Auto) (0-2) % Absolute Neuts (auto) (1.5-7.7) 10^3/ul Absolute Lymphs (auto) (1.0-4.8) 10^3/ul Absolute Monos (auto) (0-0.8) 10^3/ul Absolute Eos (auto) (0-0.6) 10^3/ul Absolute Basos (auto) (0-0.2) 10^3/ul Absolute Nucleated RBC 10^3/ul Nucleated RBC % Sodium (135-145) mmol/L Potassium TNP Chloride (101-111) mmol/L Carbon Dioxide (22-32) mmol/L Anion Gap (2-11) mmol/L BUN (6-24) mg/dL Creatinine (0.51-0.95) mg/dL Est GFR ( Amer) (>60) Est GFR (Non-Af Amer) (>60) BUN/Creatinine Ratio (8-20) Glucose (70-100) mg/dL Lactic Acid (0.5-2.0) mmol/L Calcium (8.6-10.3) mg/dL Total Bilirubin (0.2-1.0) mg/dL AST TNP ALT (7-52) U/L Alkaline Phosphatase (34-104) U/L C-Reactive Protein (<8.01) mg/L Total Protein (6.4-8.9) g/dL Albumin (3.2-5.2) g/dL Globulin (2-4) g/dL Albumin/Globulin Ratio (1-3) Lipase (11.0-82.0) U/L Beta HCG, Quant mIU/mL Urine Color Straw Urine Appearance Clear Urine pH 7.0 (5-9) Ur Specific [place] 1.004 L (1.010-1.030) Urine Protein Negative (Negative) Urine Ketones Negative (Negative) Urine Blood 1+ A (Negative) Urine Nitrate Negative (Negative) Urine Bilirubin Negative (Negative) Urine Urobilinogen Negative (Negative) Ur Leukocyte Esterase Negative (Negative) Urine WBC (Auto) Absent (Absent) Urine RBC (Auto) Trace(0-2/hpf) (Absent) Ur Squamous Epith Cells Present A (Absent) Urine Bacteria Absent (Absent) Urine Glucose Negative (Negative) Result Diagrams: 03/20/18 09:46 03/20/18 10:25 Lab Statement: Any lab studies that have been ordered have been reviewed, and results considered in the medical decision making process. Naus/Vom/Diarrhea Course/Dx - Course Course Of Treatment: During the course treatment the patient is evaluated for profuse watery diarrhea 20-30 per day over the past 3 days. Patient also is endorsing cramping to the abdomen and dehydration. Stool culture positive for C. difficile. Patient is given metronidazole 500 mg 3 times a day 10 days. She is to continue to rehydrate as much as possible. - Differential Dx/Diagnosis Provider Diagnoses: C. difficile Condition At Discharge: Stable Discharge - Sign-Out/Discharge Documenting (check all that apply): Patient Departure - Discharge Plan Condition: Stable Disposition: HOME Prescriptions: metroNIDAZOLE [Flagyl 500 MG TAB] 500 mg PO TID #30 tab Patient Education Materials: Acute Diarrhea (ED), Nutrition Tips for Relief of Diarrhea (ED) Forms: *Work Release Referrals: Mira John NP [Primary Care Provider] - Additional Instructions: Will call with any results of the stool culture which would require antibiotics. If your symptoms fail to improve in 2-3 days, return to the ED immediately - Billing Disposition and Condition Condition: STABLE Disposition: Home
== END 2018-03-20 12:15 | disposition home or self-care (01) ==
LOC: ED 08:46
DX: E86.0 Dehydration (principal); A04.72 Enterocolitis due to Clostridium difficile, not specified as recurrent
CPT/HCPCS: 36415; 80053; 81003; 81015; 83605; 83630; 83690; 84702; 85025; 86140; 87045; 87046; 87329; 87493; 87899; 96360; 96361; 99283

== ENCOUNTER 2018-05-26 16:58 | Emergency (ER) | payer BC ==
[2018-05-26 17:06] VITALS: BP 147/89
--- NOTE | 2018-05-26 17:09 | UC ---
Skin Complaint HPI - HPI Summary HPI Summary: 27 y/o female presents to the urgent care c/o rash in her left axilla since 04/17. Pt states for the past week it has increased in size and w/ some crusting discharge. She felt some joint stiffness in her left fingers, specially in the middle finger yesterday. She took Ibuprofen 400mg PO and then symptoms resolved. Pt states when she shaves rash increases in size. She has mild pain at touch 2/10. Pt denies fever, JIMENEZ, dizziness, SOB, chest pain, abdominal pain, N/V/d. She has applied hydrocortisone topical cream w/o any improvement. - History of Current Complaint Chief Complaint: UCSkin Time Seen by Provider: 05/26/18 17:08 Stated Complaint: RASH Hx Obtained From: Patient Hx Last Menstrual Period: NOW ?: No Onset/Duration: Gradual Onset, Lasting Weeks - 4 weeks, Still Present, Worse Since - last week Skin Exposure Onset/Duration: Weeks Ago - 4-5 weeks Timing: Constant Onset Severity: Mild Current Severity: Mild Pain Intensity: 1 Pain Scale Used: 0-10 Numeric Location: Discrete - left axilla Character: Pruritus, Pain - mild at touch, Redness Aggravating Factor(s): Touch, Other - shaving Alleviating Factor(s): OTC Meds Associated Signs & Symptoms: Positive: Rash, Tenderness - mild. Negative: Nausea, Vomiting, Numbness, Fever, Chills, Drainage Related History: Other: - shaving - Allergy/Home Medications Allergies/Adverse Reactions: Allergies Allergy/AdvReac Type Severity Reaction Status Date / Time seasonal allergy Allergy Congestion Uncoded 05/26/18 17:06 Home Medications: Home Medications Control* 1 tab PO DAILY 05/26/18 [History Confirmed 05/26/18] LORazepam TAB(*) [Ativan 0.5 MG TAB (*)] PRN 05/26/18 [History] Review of Systems All Other Systems Reviewed And Are Negative: Yes Constitutional: Positive: Negative Skin: Positive: Rash - left axilla w/ redness and crusting yellowish discharge Eyes: Positive: Negative ENT: Positive: Negative Respiratory: Positive: Negative Cardiovascular: Positive: Negative Gastrointestinal: Positive: Negative Genitourinary: Positive: Negative Motor: Positive: Negative Neurovascular: Positive: Negative Musculoskeletal: Positive: Negative Neurological: Positive: Negative Psychological: Positive: Negative Is Patient Immunocompromised?: No PMH/Surg Hx/FS Hx/Imm Hx Previously Healthy: Yes - Pt denies PMHX - Surgical History Surgical History: Yes Surgery Procedure, Year, and Place: 2004 right inquinal hernia - Family History Known Family History: Positive: Hypertension, Diabetes Family History: Mother: fibroids, arthritis. Aunt: ruptured ovarian cyst - Social History Occupation: Employed Full-time Lives: With Family Alcohol Use: Occasionally Substance Use Type: None Smoking Status (MU): Never Smoked Tobacco - Immunization History Most Recent Tetanus Shot: Thinks so Physical Exam - Summary Physical Exam Summary: Vital Signs Reviewed: Yes General: well developed, well nourished obese female sitting in the examining table w/o any apparent distress. Eyes: Positive: Conjunctiva Clear - PERRLA, EOMI ENT: Positive: Normal ENT inspection, Hearing grossly normal, Pharynx normal, TMs normal Neck: Positive: Supple, Nontender, No Lymphadenopathy Respiratory: Positive: Chest nontender, Lungs clear, Normal breath sounds Cardiovascular: Positive: RRR, No Murmur, Pulses Normal Abdomen Description: Positive: Nontender, No Organomegaly, Soft. Negative: CVA Tenderness (R), CVA Tenderness (L) Bowel Sounds: Positive: Present Musculoskeletal: Positive: Strength Intact, ROM Intact, No Edema Neurological Exam: Normal Psychological Exam: Normal Skin: Positive: rashes - Left axilla w/ erythematous patch around hair follicles w/ indistinct borders, warm to touch, mild tender to palpation. FROM of lef shoulder, no lymphadenopathy Triage Information Reviewed: Yes Vital Signs: Initial Vital Signs Temp 98.3 F 05/26/18 17:02 Pulse 83 05/26/18 17:02 Resp 16 05/26/18 17:02 BP 147/89 05/26/18 17:02 Pulse Ox 100 05/26/18 17:02 Course/Dx - Course Course Of Treatment: 27 y/o female presents to the urgent care c/o rash in her left axilla since 04/17/2018. Pt states for the past week it has increased in size and w/ some crusting discharge. She felt some joint stiffness in her left fingers, specially in the middle finger yesterday. She took Ibuprofen 400mg PO and then symptoms resolved. Pt states when she shaves rash increases in size. She has mild pain at touch 2/10. Pt denies fever, JIMENEZ, dizziness, SOB, chest pain , abdominal pain, N/V/d. She has applied hydrocortisone topical cream w/o any improvement. Hx obtained. Pt w/ left axilla follicultis on examination. Pt Rx Keflex PO, bactroban topical cream. Pt Advised to avoid shaving and to f/u her apt next week w/ Dr Galvez if not improvemetn of symptoms. Pt BP today elevated w/o Hx of HTN. Pt advised to decrease salt in diet and monitor BP at home if it continues to be elevated to f/u with PCP for further management. D/c instructions explained. Pt understood and agreed w/ plan of care.. - Differential Diagnoses - Skin Complaint Differential Diagnoses: Abscess, Cellulitis, Contact Dermatitis, MRSA, Tinea, Urticaria, Other - folliculitis - Diagnoses Provider Diagnoses: 1- Left axilla folliculitis. 2- Elevated BP w/o Hx of HTN Discharge - Sign-Out/Discharge Documenting (check all that apply): Patient Departure - D/c home All imaging exams completed and their final reports reviewed: No Studies - Discharge Plan Condition: Stable Disposition: HOME Prescriptions: Cephalexin CAP* [Keflex CAP*] 500 mg PO TID #21 cap Mupirocin 2% OINT* [Bactroban 2 % Oint*] 1 applic TOPICAL BID #1 tube Patient Education Materials: Folliculitis (ED), Low-Sodium Diet (ED) Referrals: Mira John NP [Primary Care Provider] - 1 Week Lizette Galvez [Medical Doctor] - 1 Week Additional Instructions: 1-Please take full course of Antibiotic to avoid resistance. Apply Bactroban topical cream as directed to alleviate rash 2-Avoid shaving until symptoms resolve. keep area clean and dry. Avoid strenuous exercise or swimming until symptoms resolve 3-Please F/u with your appt w/ Law Office Manager DR Galvez in 1 week if not improvement of symptoms for further evaluation and treatment. 4-Your BP is elevated today. please decrease salt in your diet, monitor BP and if it continues to be elevated please f/u with your PCP for further management - Billing Disposition and Condition Condition: STABLE Disposition: Home
== END 2018-05-26 17:35 | disposition home or self-care (01) ==
LOC: UCEAST 16:58
DX: L73.9 Follicular disorder, unspecified (principal); R03.0 Elevated blood-pressure reading, without diagnosis of hypertension; Z91.048 Other nonmedicinal substance allergy status
CPT/HCPCS: 99212; G0463

== ENCOUNTER 2018-05-29 10:03 | Emergency (ER) | payer BC ==
[2018-05-29 10:16] VITALS: BP 125/82
--- NOTE | 2018-05-29 11:03 | UC ---
Eye Complaint HPI - HPI Summary HPI Summary: Patient presents with a past medical history of allergies. She does not take any medications for her allergies. She complains of eye irritation and runny nose. She states in addition she woke up with left eye redness, and drainage this morning. She denies any eye pain, change in vision, or vesicular lesions. - History of Current Complaint Chief Complaint: UCEye Stated Complaint: EYE COMPLAINT Time Seen by Provider: 05/29/18 10:48 Hx Obtained From: Patient Hx Last Menstrual Period: NOW Onset/Duration: Gradual Onset, Lasting Hours Timing: Hours Severity Initially: Mild Severity Currently: Mild Pain Intensity: 3 Aggravating Factor(s): Blinking Alleviating Factor(s): Nothing Associated Signs And Symptoms: Positive: Drainage (Purulent) - Risk Factors Penetrating Injury Risk Factor: Negative Globe Rupture Risk Factors: Negative Acute Glaucoma Risk Factors: Eye Inflammation Optic Artery Occlusion Risk Factors: Negative - Allergies/Home Medications Allergies/Adverse Reactions: Allergies Allergy/AdvReac Type Severity Reaction Status Date / Time seasonal allergy Allergy Congestion Uncoded 05/29/18 10:16 PMH/Surg Hx/FS Hx/Imm Hx Previously Healthy: Yes - Surgical History Surgical History: Yes Surgery Procedure, Year, and Place: 2004 right inquinal hernia - Family History Known Family History: Positive: Hypertension, Diabetes Family History: Mother: fibroids, arthritis. Aunt: ruptured ovarian cyst - Social History Occupation: Employed Full-time Lives: Alone Alcohol Use: Occasionally Substance Use Type: None Smoking Status (MU): Never Smoked Tobacco - Immunization History Most Recent Tetanus Shot: Thinks so Review of Systems All Other Systems Reviewed And Are Negative: Yes Constitutional: Positive: Negative Skin: Positive: Negative Eyes: Positive: Drainage, Eye Redness ENT: Positive: Nasal Discharge, Sinus Congestion Respiratory: Positive: Negative Cardiovascular: Positive: Negative Gastrointestinal: Positive: Negative Genitourinary: Positive: Negative Motor: Positive: Negative Neurovascular: Positive: Negative Musculoskeletal: Positive: Negative Neurological: Positive: Negative Psychological: Positive: Negative Physical Exam Triage Information Reviewed: Yes Appearance: Well-Appearing Vital Signs: Initial Vital Signs Temp 98.2 F 05/29/18 10:13 Pulse 92 05/29/18 10:13 Resp 18 05/29/18 10:13 BP 125/82 05/29/18 10:13 Pulse Ox 100 05/29/18 10:13 Vital Signs Reviewed: Yes Eyes: Positive: Conjunctiva Inflamed, Other: - sclera with injection of lateral aspect. no lid swelling. nontender periorbit processes. ENT Exam: Normal Dental Exam: Normal Neck exam: Normal Neck: Positive: 1 Respiratory Exam: Normal Cardiovascular Exam: Normal Abdominal Exam: Normal Musculoskeletal Exam: Normal Neurological Exam: Normal Psychological Exam: Normal Skin Exam: Normal Eye Complaint Course/Dx - Course Course Of Treatment: Patient presents with conjunctivits and will be treated with polytrim eye drops as directed and told that if her symtpoms do not improve she would have to either go to her doctor or return to the clinic at once for re-evaluation. She verbalized understanding of and in agreement with the discharge plan. - Differential Dx/Diagnosis Differential Diagnosis/HQI/PQRI: Conjunctivitis Provider Diagnoses: conjunctivitis Discharge - Sign-Out/Discharge Documenting (check all that apply): Patient Departure All imaging exams completed and their final reports reviewed: No Studies - Discharge Plan Condition: Stable Disposition: HOME Prescriptions: Polymyx/Trimethoprim OPTH* [Polytrim OPHTH*] 1 drop LEFT EYE Q3H #1 btl Patient Education Materials: Conjunctivitis (ED) Referrals: Mira John NP [Primary Care Provider] - Ascencion Hilton MD [Medical Doctor] - Additional Instructions: If your symptoms do not improve as anticipated you will need to follow up immediately. - Billing Disposition and Condition Condition: STABLE Disposition: Home - Attestation Statements Scribe Documentation Reviewed: No Provider Attestation: Per institutional requirements, I have reviewed the chart, however, I was not consulted specifically or made aware of this patient by the midlevel provider. I did not personally evaluate, interact with , or disposition this patient.
== END 2018-05-29 11:04 | disposition home or self-care (01) ==
LOC: UCEAST 10:03
DX: H10.9 Unspecified conjunctivitis (principal); Z91.048 Other nonmedicinal substance allergy status
CPT/HCPCS: 99212; G0463

== ENCOUNTER 2018-07-16 16:57 | Emergency (ER) | payer BC ==
--- OUTSIDE RECORDS SUMMARY | 2018-07-16 17:02 | XMS REPORT ---
:1990 External Reference #:[id number] Author Organization [facility] Address [address] [place] [address] Phone [phone] Care Team Providers Name Role Phone Gilma Kraus M.D. Care Team Information Cloth Washer Unavailable Gilma Kraus M.D. Primary Care Physician Unavailable Payers Type Date Identification Numbers Payment Provider Subscriber Commercial Effective: Policy Number: [employer] Kirstie Murphy 2016 [id number] PayID: [id number] [place] [address] Problems Description No Information Family History Date Family Member(s) Problem(s) Comments Father No Current Problems Mother Cyst Of Breast Paternal Grandfather Diabetes Mellitus, II Paternal Grandfather Hypertension Paternal Grandmother Depression Maternal Grandfather due to CO () - late 50s Maternal Grandmother Diabetes Mellitus, II Social History Type Date Description Comments Marital Status Single Lives With Boyfriend Sleep Typically sleeps 6 hours a night Work Status Full-Time Employment Cigarette Use Never Smoked Cigarettes ETOH Use Occasional Recreational Drug Use Never Used Drugs Smoking Patient has never smoked Seat Belt/Car Seat Always uses seat belt Currently Active Patient is currently sexually active STD's HSV2 STD's HPV STD's [facility] Allergies, Adverse Reactions, Alerts Date Description Reaction Status Severity Comments 04/01/2017 NKDA active Medications Medication Date Status Form Strength Qnty SIG Indications Ordering Provider Abilify 05/26/ Active Tablets 2mg 30tab 1 by mouth Mira 2018 s every day LISA John Vyvanse 02/24/ Active Capsules 40mg 30cap 1 by mouth Mira 2018 s every day LISA John Mometasone 09/02/ Active Cream 0.1% 15gm apply to Mira Furoate 2018 affected [facility], areas once [employer] a day; max continuous use 2 weeks Lorazepam / Active Tablets 1mg take one Unknown 0000 tablet by mouth every day Valacyclovir / Active Tablets 1gm 1 by mouth Unknown HCL 0000 every 12 hours prn Vitamin D / Active Tablets 1000Unit G47.00 Unknown (Cholecalcifer 0000 ol) Sertraline HCL 10/20/ Hx Tablets 50mg 90tab 1 by mouth F41.9 Mira 2018 - s every day [facility], 2017 Bupropion HCL 09/02/ Hx Tablets ER 300mg 90tab 1 by mouth F41.9 Mira ER (XL) 2018 - 24HR s every day [facility], 2017 Sertraline HCL 09/02/ Hx Tablets 25mg 30tab 1 by mouth F41.9 Mira 2018 - s every day [facility], 2017 Vyvanse 06/29/ Hx Capsules 40mg 90cap 1 by mouth Mira 2016 - s every day [facility], 02/24/ code b [facility] 2017 Bupropion HCL 05/28/ Hx Tablets 100mg 60tab 2 by mouth F41.9 Cassia Ruiz 2016 - s daily Wilber, 09/02/ [employer]ISTER 2017 Previfem / Hx Tablets 0.25-35mg- 168ta 1 by mouth Gilma 0000 - [facility] every day Efra, 06/21/ M.DBryan 2017 Adderall / Hx Tablets 20mg take one by Unknown 0000 - mouth once daily 2016 Adderall XR / Hx Caps ER 20mg take 1 Unknown 0000 - 24HR capsule by 05/27/ mouth every 2016 day maximum daily dose of 1 per day Vyvanse / Hx Capsules 70mg 30cap take one Mira 0000 - s capsule by [facility], 06/29/ mouth every [employer] 2016 day; maximum daily dose=1 Womens Daily 00/ Hx Tablets G47.00 Unknown Formula/Folic 0000 - Acid/Calcium/I jak 2017 B Complex 00/ Hx Tablets G47.00 Unknown 0000 - 2017 Medications Administered in Office Medication Date Status Form Strength Qnty SIG Indications Ordering Provider Brief Administered Injection Mira Emotional/Beh 018 LISA John av Assessment W/ Scoring Doc Per Standard [facility] Brief Administered Injection Cassia WalshBryan Emotional/Beh 017 ARCHANA Merino av Assessment W/ Scoring Doc Per Standard [facility] Immunizations CPT Code Status Date Vaccine Lot # [id number] Given 04/01/2017 Tdap Tetanus, W Pertussis [id number] Vital Signs Date Vital Result Comment 06/21/2018 BP Systolic 144 mmHg BP Diastolic 88 mmHg Heart Rate 84 /min Body Temperature 98.8 F Respiratory Rate 16 /min Height 67.25 inches 5'7.25" Weight 195.00 lb BMI (Body Mass Index) 30.3 kg/m2 10/20/2017 BP Systolic 140 mmHg BP Diastolic 76 mmHg Heart Rate 78 /min Body Temperature 98.1 F Height 68 inches 5'8" Weight 180.00 lb BMI (Body Mass Index) 27.4 kg/m2 09/02/2017 BP Systolic 124 mmHg BP Diastolic 78 mmHg Heart Rate 80 /min Body Temperature 98.8 F Respiratory Rate 16 /min Height 68 inches 5'8" Weight 181.00 lb BMI (Body Mass Index) 27.5 kg/m2 06/29/2017 BP Systolic 142 mmHg BP Diastolic 84 mmHg Heart Rate 96 /min Body Temperature 98.7 F Respiratory Rate 16 /min Height 68 inches 5'8" Weight 188.00 lb BMI (Body Mass Index) 28.6 kg/m2 05/28/2017 BP Systolic 140 mmHg BP Diastolic 60 mmHg Heart Rate 84 /min Respiratory Rate 16 /min Height 68 inches 5'8" Weight 188.00 lb BMI (Body Mass Index) 28.6 kg/m2 04/15/2017 BP Systolic 110 mmHg BP Diastolic 76 mmHg Heart Rate 76 /min Body Temperature 98.1 F Respiratory Rate 16 /min Height 68 inches 5'8" Weight 191.50 lb BMI (Body Mass Index) 29.1 kg/m2 04/01/2017 BP Systolic 128 mmHg BP Diastolic 70 mmHg Heart Rate 96 /min Body Temperature 98.4 F Height 68 inches 5'8" Weight 191.50 lb BMI (Body Mass Index) 29.1 kg/m2 Results Test Date Test Result H/L Range Note Laboratory test 03/20/2018 C Difficile PCR SEE RESULT BELOW 1 finding Laboratory test 03/20/2018 Potassium Redraw TNP mmol/L 3.5-5.0 2 finding Ast Redraw TNP U/L 13-39 3 Laboratory test finding 03/20/2018 Lactic Acid 1.4 mmol/L 0.5-2.0 4 CBC Auto Diff 03/20/2018 White Blood Count 8.8 10^3/uL 3.5-10.8 Red Blood Count 5.44 10^6/uL High 4.00-5.40 Hemoglobin 15.8 g/dL 12.0-16.0 Hematocrit 48 % High 35-47 Mean Corpuscular Volume 87 fL 80-97 Mean Corpuscular Hemoglobin 29 pg 27-31 Mean Corpuscular HGB Conc 33 g/dL 31-36 Red Cell Distribution Width 12 % 10.5-15 Platelet Count 330 10^3/uL 150-450 Mean Platelet Volume 7.4 um3 7.4-10.4 Abs Neutrophils 6.9 10^3/uL 1.5-7.7 Abs Lymphocytes 1.3 10^3/uL 1.0-4.8 Abs Monocytes 0.6 10^3/uL 0-0.8 Abs Eosinophils 0 10^3/uL 0-0.6 Abs Basophils 0 10^3/uL 0-0.2 Abs Nucleated RBC 0 10^3/uL Granulocyte % 77.7 % 38-83 Lymphocyte % 14.9 % Low 25-47 Monocyte % 6.9 % 0-7 Eosinophil % 0.3 % 0-6 Basophil % 0.2 % 0-2 Nucleated Red Blood Cells % 0.2 Urinalysis Profile 03/20/2018 Urine Color Straw Urine Appearance Clear Urine Specific [place] 1.004 Low 1.010-1.030 Urine pH 7.0 5-9 Urine Urobilinogen Negative Negative Urine Ketones Negative Negative Urine Protein Negative Negative Urine Leukocytes Negative Negative Urine Blood 1+ Negative Urine Nitrite Negative Negative Urine Bilirubin Negative Negative Urine Glucose Negative Negative Urine White Blood Cell Absent Absent Urine Red Blood Cell Trace(0-2/hpf) Absent Urine Bacteria Absent Absent Urine Squamous Epithelial Cell Present Absent Comp Metabolic Panel 03/20/2018 Sodium 134 mmol/L Low 135-145 Chloride 107 mmol/L 101-111 Co2 Carbon Dioxide 22 mmol/L 22-32 Glucose 101 mg/dL High 70-100 5 Blood Urea Nitrogen 12 mg/dL 6-24 6 Creatinine 0.70 mg/dL 0.51-0.95 7 BUN/Creatinine Ratio 17.1 8-20 Calcium 9.1 mg/dL 8.6-10.3 8 Total Protein 7.1 g/dL 6.4-8.9 9 Albumin 4.3 g/dL 3.2-5.2 10 Globulin 2.8 g/dL 2-4 Albumin/Globulin Ratio 1.5 1-3 Total Bilirubin 0.20 mg/dL 0.2-1.0 11 Alkaline Phosphatase 72 U/L 34-104 12 Alt 29 U/L 7-52 13 Egfr Non- 99.6 >60 Egfr 120.6 >60 14 Potassium TNP mmol/L 3.5-5.0 15 Anion Gap 5 mmol/L 2-11 Ast TNP U/L 13-39 16 Laboratory test finding 03/20/2018 Lipase 18 U/L 11.0-82.0 17 C Reactive Protein 11.08 mg/L High <8.01 18 HCG < 0.60 mIU/mL 19 Rapid Influenza A & B 09/13/2017 Influenza A Molecular NEGATIVE Negative 20 Molecular Influenza B Molecular NEGATIVE Negative Laboratory test finding 09/13/2017 Rapid Strep Molecular Negative Negative 21 Laboratory test finding 04/15/2017 TSH 2.43 mIU/L 0.50-6.00 Free T4 1.30 ng/dL 0.75-1.54 Free T3 3.54 pg/mL 2.00-4.90 Total T3 Canceled By Lab 0.8-2.0 1 SEE RESULT BELOW Name: KIRSTIE MURPHY : [address]: Reynaldo Fair MD Acct: [id number] Unit: [id number] AGE: 27 Location: ED Re03/20/18 SEX: F Status: DEP ER SPEC: [id number] AROLDO: 03/20/[address] [facility] [address]: Jeanette HDZ REQ: [id number] RECD: 03/20/18 STATUS: VICKY ART DR: Mira John SPIRITUAL MINISTER Reynaldo Fair MD _ SOURCE: STOOL SPDESC: ORDERED: C. diff PCR, Stool Culture, Fecal Lactoferr, Giardia Antigen COMMENTS: Verbal to [id number] by [id number] at 1304 on 03/20/18. Results read back accurately. Procedure Result Reported Site Stool Culture Final 03/22/18- 0830 ML Result No enteric pathogens isolated Testing for Salmonella, Shigella, Aeromonas, Plesiomonas, Yersinia and Campylobacter are included in a Stool Culture. Vibrio spp not routinely tested for in a stool culture. If testing is desired, please request specifically when placing test order. Sensitivities not routinely performed on stool isolates, as antibiotics may prolong the carriage rate of bacteria. Please contact the microbiology lab if sensitivities are required. Stool Specimen Description Final 03/20/18- 1240 ML Stool Color Rushing Stool Form Nonformed Stool Consistency Liquid Shiga Toxin 1 2 Final 03/21/18- 1154 ML Organism 1 Negative Shiga Toxin 1 2 Immunochromatographic Assay CONTINUED ON NEXT PAGE DEPARTMENT OF PATHOLOGY, [address] [place] [address] Dalton Haney M.D. Director [facility] # [id number] Patient: KIRSTIE MURPHY [id number] (Continued) Specimen: [id number] Collected: 03/20/18 Received: 03/20/18 (Continued) Procedure Result Reported Site Shiga Toxin 1 2 Final (continued) 03/21/18- 1154 C. difficile PCR Final 03/20/18- 1307 ML Organism 1 027 Presumptive NEGATIVE Organism 2 Toxigenic C.diff POSITIVE Fecal Lactoferrin (Stool WBC) Final 03/20/18- 1528 ML Fecal Lactoferrin Positive by Immunoassay TEST LIMITATIONS: Assay detects elevated levels of lactoferrin released from fecal leukocytes as a marker of intestinal inflammation. The test may not be appropriate in immunocompromised persons. Fecal samples from breast fed infants should not be used with this assay. Giardia Antigen Screen Final 03/21/18- 1151 ML Organism 1 Negative Giardia Giardia antigen testing performed by enzyme immunoassay. If patient is immunocompromised or has traveled to or is from a developing country, a full ova and parasite exam with microscopic (OPMIC) is recommended. All samples will be held one month in case full ova and parasite testing is requested. Contact the Microbiology Department at [phone]. TEST LIMITATIONS: As with all diagnostic procedures, the results obtained should be used in conjunction with other clinical information available the physician, including confirmation by another method. Negative results can occur in samples containing antigen below lower limits of detection of the assay. One negative specimen does not rule out the possibility of a parasitic infection. To improve detection it is recommended that three specimens be collected on separate days over a period of not more than seven days. The use of colonic washes, aspirates or other diluted sample CONTINUED ON NEXT PAGE DEPARTMENT OF PATHOLOGY, [address] [place] [address] Dalton Haney M.D. Director [facility] # [id number] Patient: KIRSTIE MURPHY [id number] (Continued) Specimen: [id number] Collected: 03/20/18 Received: 03/20/18 (Continued) Procedure Result Reported Site Giardia Antigen Screen Final (continued) 03/21/18- 1151 types has not been established and could affect the performance of the assay. Stool samples contaminated with an oily or particulate base (eg. Barium, mineral oil etc.) could interfere with the test and are not recommended. * ML - Main Lab . END OF REPORT DEPARTMENT OF PATHOLOGY, [address] [place] [address] Dalton Haney M.D. Director [facility] # [id number] 2 Specimen Hemolyzed. Result may not be valid. Unable to report test result due to hemolysis. 3 Unable to report test result due to hemolysis. 4 Specimen hemolyzed. Result may not be valid. [place] Severe Sepsis and Septic Shock Management Bundle Measure requires all lactic acids initially measuring >2.0 mmol/L be repeated. 5 Specimen hemolyzed. Result may not be valid. 6 Specimen hemolyzed. Result may not be valid. 7 Specimen hemolyzed. Result may not be valid. 8 Specimen hemolyzed. Result may not be valid. 9 Specimen hemolyzed. Result may not be valid. 10 Specimen hemolyzed. Result may not be valid. 11 Specimen hemolyzed. Result may not be valid. 12 Specimen hemolyzed. Result may not be valid. 13 Specimen hemolyzed. Result may not be valid. 14 Because ethnic data is not always readily available, this report includes an eGFR for both -Americans and non- Americans. The National Kidney Disease Education Program (NKDEP) does not endorse the use of the MDRD equation for patients that are not between the ages of 18 and 70, are , have extremes of body size, muscle mass, or nutritional status, or are non- or non-. According to the National Kidney Foundation, irrespective of diagnosis, the stage of the disease is based on the level of kidney function: Stage Description GFR(mL/min/1.73 m(2)) 1 Kidney damage with normal or decreased GFR 90 2 Kidney damage with mild decrease in GFR 60-89 3 Moderate decrease in GFR 30-59 4 Severe decrease in GFR 15-29 5 Kidney failure <15 (or dialysis) 15 Specimen Hemolyzed. Result may not be valid. Unable to report test result due to hemolysis. 16 Unable to report test result due to hemolysis. 17 Specimen hemolyzed. Result may not be valid. 18 Specimen hemolyzed. Result may not be valid. 19 <5.0 Negative 5.0 - 25.0 Indeterminate (Repeat testing recommended after 72 hours) >25.0 Positive Perimenopausal women can display HCG levels of up to 20 mIU/mL 20 Card Puncher: [id number] 21 Card Puncher: [id number] Procedures Date CPT Code Description Status 09/02/2017 35319 Brief Emotional/Behav Assessment W/ Scoring Doc Per Completed Standard Inst 04/01/2017 70669 Brief Emotional/Behav Assessment W/ Scoring Doc Per Completed Standard Inst Encounters Type Date Location Provider CPT E/M Dx Office Visit 10/20/2017 9:30a [facility] Office Mira John, [facility] [address] R41.840 F34.1 F41.9 G47.00 R14.2 Office Visit 09/02/2017 9:30a [facility] Office Mira John, [facility] [address] G47.00 F41.9 R41.840 F34.1 R55 Z13.9 Office Visit 06/29/2017 8:30a [facility] Office Mira John, [facility] [address] G47.00 F41.9 R41.840 R23.8 Office Visit 05/28/2017 9:00a [facility] Office Mira John, [facility] [address] G47.00 F41.9 R41.840 F78 K92.1 K59.00 Office Visit 04/15/2017 9:45a [facility] Office Cassia Merino, [place] [address] D44.0 Office Visit 04/01/2017 9:00a [facility] [place] [address] F41.9 Z00.00 B00.9 F90.9 E66.3 Z23 Z13.9 Plan of Care 06/21/2018 - Mira John, FNPF34.1 Dysthymic ivsuhgaeP32.840 Attention and concentration uxrqtnvU57.2 EructationComments:I suspect this is gastroesophageal reflux disease, treat conservatively as we discussed and call RON if condition changes/worsens in any wayE66.3 YfahdquzhxK46.00 Encntr for general adult medical exam w/o abnormal findingsAllComments:~B_~U_Medication Management~b_~u_ Patient Understands medications he 's taking? Yes No Are there Barriers to Adherence? Yes No Has the patient been asked about herbal supplements and therapies, and OTC meds? Yes No As always, we strongly encourage a healthy diet and making physical activity a part of your every day life. If you have questions about how or where to start,please contact the office.
[2018-07-16 17:18] VITALS: BP 131/74
--- NOTE | 2018-07-16 17:28 | UC ---
Skin Complaint HPI - HPI Summary HPI Summary: 27-year-old female presents with 2 day history of rash to her left chest wall. States it initially started out as simply history pain yesterday became painful as well. Describes pain as a burning that worsens with even light touch. Reports she does have a history of some eczema however states this is different from her usual symptoms. Denies fever, chills, changes in medications, diet, soaps, detergents, perfumes, cosmetics, lotions, recent travel out of the country, or exposure to known environmental irritants. Patient did have chickenpox as a child. - History of Current Complaint Chief Complaint: UCSkin Time Seen by Provider: 07/16/18 17:10 Stated Complaint: SKIN COMPLAINT Hx Obtained From: Patient Hx Last Menstrual Period: end of may/beginning of june Pain Intensity: 1 - Allergy/Home Medications Allergies/Adverse Reactions: Allergies Allergy/AdvReac Type Severity Reaction Status Date / Time seasonal allergy Allergy Congestion Uncoded 05/29/18 10:16 Home Medications: Home Medications ARIPiprazole [Abilify] 5 mg PO DAILY 07/16/18 [History Confirmed 07/16/18] Alclometasone Dipropionate 1 dose TOPICAL DAILY PRN 07/16/18 [History Confirmed 07/16/18] PMH/Surg Hx/FS Hx/Imm Hx Previously Healthy: Yes Psychological History: Anxiety, Bipolar Disorder - Surgical History Surgical History: Yes Surgery Procedure, Year, and Place: 2004 right inquinal hernia - Family History Known Family History: Positive: Hypertension, Diabetes Family History: Mother: fibroids, arthritis. Aunt: ruptured ovarian cyst - Social History Occupation: Employed Full-time Lives: With Family Alcohol Use: Occasionally Substance Use Type: None Smoking Status (MU): Never Smoked Tobacco - Immunization History Most Recent Tetanus Shot: Thinks so Review of Systems All Other Systems Reviewed And Are Negative: Yes Constitutional: Negative: Fever, Chills Skin: Positive: Rash Eyes: Negative: Drainage, Eye Redness ENT: Negative: Sore Throat, Ear Ache, Nasal Discharge, Sinus Congestion, Sinus Pain/Tenderness Respiratory: Negative: Shortness Of Breath Cardiovascular: Negative: Palpitations, Chest Pain Gastrointestinal: Negative: Abdominal Pain, Vomiting, Diarrhea, Nausea Is Patient Immunocompromised?: No Physical Exam - Summary Physical Exam Summary: GENERAL APPEARANCE: Well developed, well nourished, alert and cooperative, and appears to be in no acute distress. CARDIAC: Normal S1 and S2. No S3, S4 or murmurs. Rhythm is regular. There is no peripheral edema, cyanosis or pallor. Extremities are warm and well perfused. Capillary refill is less than 2 seconds. LUNGS: Clear to auscultation and percussion without rales, rhonchi, wheezing or diminished breath sounds. ABDOMEN: Positive bowel sounds. Soft, nondistended, nontender. No guarding or rebound. No masses or hepatosplenomegally. MUSKULOSKELETAL: ROM intact to all extremities. No joint erythema or tenderness. Normal muscular development. Normal gait. SKIN: Small dermatomal, painful, vesicular rash noted to left chest wall at the mid-axillary line. Triage Information Reviewed: Yes Vital Signs: Initial Vital Signs Temp 98.7 F 07/16/18 17:14 Pulse 87 07/16/18 17:14 Resp 14 07/16/18 17:14 BP 131/74 07/16/18 17:14 Pulse Ox 100 07/16/18 17:14 Vital Signs Reviewed: Yes Course/Dx - Course Course Of Treatment: 27-year-old female presents with 2 day history of rash to her left chest wall. States it initially started out as simply history pain yesterday became painful as well. Describes pain as a burning that worsens with even light touch. Reports she does have a history of some eczema however states this is different from her usual symptoms. Denies fever, chills, changes in medications, diet, soaps, detergents, perfumes, cosmetics, lotions, recent travel out of the country, or exposure to known environmental irritants. Patient did have chickenpox as a child. Afebrile. Vital signs stable. Exam revealed a small dermatomal, painful, vesicular rash to her left chest wall along the mid axillary line and otherwise unremarkable exam. Patient states she is concerned about possible and is requesting testing at this time. [id number] urine was negative. Will treat for herpes zoster with valacyclovir 1 g three times a day 7 days and naproxen 500 mg twice a day as needed for pain.. She is to follow-up with her primary care provider for any worsening of symptoms. Verbalizes understanding and agrees with plan of care. - Differential Diagnoses - Skin Complaint Differential Diagnoses: Cellulitis, Contact Dermatitis, Local Allergic Reaction , MRSA, Varicella Zoster - Diagnoses Provider Diagnosis: Herpes zoster Discharge - Sign-Out/Discharge Documenting (check all that apply): Patient Departure All imaging exams completed and their final reports reviewed: No Studies - Discharge Plan Condition: Stable Disposition: HOME Prescriptions: Naproxen [Naproxen 500 mg tab] 500 mg PO Q12HR PRN #30 tablet PRN Reason: Pain Valacyclovir HCl [Valacyclovir] 1 gm PO TID #21 tab Patient Education Materials: Shingles (ED) Referrals: Mira John NP [Primary Care Provider] - If Needed () Additional Instructions: Your rash is very suspicious for herpes zoster (shingles). Start valacyclovir 1000 mg three times a day for 7 days. Take naproxen 500 mg 1 tab every 12 hours as needed for pain. Follow up with your primary care provider if symptoms persist or worsen. - Billing Disposition and Condition Condition: STABLE Disposition: Home
== END 2018-07-16 17:58 | disposition home or self-care (01) ==
LOC: UCEAST 16:57
DX: B02.9 Zoster without complications (principal); F31.9 Bipolar disorder, unspecified; Z91.09 Other allergy status, other than to drugs and biological substances; Z79.899 Other long term (current) drug therapy
CPT/HCPCS: 84702; 99212; G0463

== ENCOUNTER 2018-09-25 08:44 | Emergency (ER) | payer BC ==
[2018-09-25 08:54] VITALS: BP 151/85
--- NOTE | 2018-09-25 08:55 | UC ---
Skin Complaint HPI - HPI Summary HPI Summary: 28 yo female presents with red blister to right hand. She tells me that she had shingles on her left ribs about 9-10 months ago and this lesion on her right hand looks and feels the same. About 2 days ago she had some itching and burning to the skin overlying her right thumb MCP. Last night noticed a red bump appear. Today has turned into small blisters that are painful. 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 Denies immunocompromised status/HIV , recent illness, fever, or chills. - History of Current Complaint Chief Complaint: UCSkin Time Seen by Provider: 09/25/18 08:55 Stated Complaint: SKIN COMPLAINT Hx Obtained From: Patient Hx Last Menstrual Period: end may/beginning of june Onset/Duration: Gradual Onset Onset Severity: Moderate Current Severity: Moderate Pain Intensity: 7 Pain Scale Used: 0-10 Numeric - Allergy/Home Medications Allergies/Adverse Reactions: Allergies Allergy/AdvReac Type Severity Reaction Status Date / Time seasonal allergy Allergy Congestion Uncoded 09/25/18 08:54 PMH/Surg Hx/FS Hx/Imm Hx - Additional Past Medical History Additional PMH: HSV Psychological History: Anxiety - Surgical History Surgical History: Yes Surgery Procedure, Year, and Place: 2004 right inquinal hernia - Family History Known Family History: Positive: Hypertension, Diabetes Family History: Mother: fibroids, arthritis. Aunt: ruptured ovarian cyst - Social History Occupation: Employed Full-time Lives: With Family Alcohol Use: Occasionally Substance Use Type: None Smoking Status (MU): Never Smoked Tobacco - Immunization History Most Recent Tetanus Shot: Thinks so Review of Systems All Other Systems Reviewed And Are Negative: Yes Constitutional: Positive: Negative Skin: Positive: Other - Red blister right thumb Respiratory: Positive: Negative Cardiovascular: Positive: Negative Gastrointestinal: Positive: Negative Neurovascular: Positive: Negative Musculoskeletal: Positive: Negative Neurological: Positive: Negative Psychological: Positive: Negative Physical Exam - Summary Physical Exam Summary: GENERAL: NAD. WDWN. No pain distress. SKIN: RIGHT THUMB: Overlying right thumb MCP there is a cluster of mildly erythematous 2-3mm blisters that are TTP. No open wound, warmth, streaking, or edema. No other lesions along arm or hand. NECK: Supple. Nontender. No lymphadenopathy. CHEST: No accessory muscle use. Breathing comfortably and in no distress. CV: Pulses intact. Cap refill <2seconds MSK: FROM right thumb. NEURO: Alert. PSYCH: Age appropriate behavior. Triage Information Reviewed: Yes Vital Signs: Initial Vital Signs Temp 98.0 F 09/25/18 08:49 Pulse 81 09/25/18 08:49 Resp 16 09/25/18 08:49 BP 151/85 09/25/18 08:49 Pulse Ox 100 09/25/18 08:49 Vital Signs Reviewed: Yes Course/Dx - Course Course Of Treatment: Shingles of C6 dermatome on right. Rx for valacyclovir and neurontin. Advised to keep area covered until crusted and healing. 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 - Diagnoses Provider Diagnosis: Shingles Discharge - Sign-Out/Discharge Documenting (check all that apply): Patient Departure All imaging exams completed and their final reports reviewed: No Studies - Discharge Plan Condition: Stable Disposition: HOME Prescriptions: Gabapentin CAP(*) [Neurontin 100 mg CAP(*)] 100 mg PO TID PRN #30 cap PRN Reason: Pain Valacyclovir HCl [Valacyclovir] 1 gm PO TID #21 tab Patient Education Materials: Shingles (ED) Forms: *Work Release Referrals: Brynn IRAHETA,Ford Macias [Medical Doctor] - As Soon As Possible Mira John NP [Primary Care Provider] - Additional Instructions: If you develop a fever, shortness of breath, chest pain, new or worsening symptoms - please call your PCP or go to the ED. Your blood pressure was high at todays visit. Please see your primary provider within 4 weeks for recheck and re-evaluation. 1) Keep the area covered until well healed - Billing Disposition and Condition Condition: STABLE Disposition: Home
== END 2018-09-25 09:34 | disposition home or self-care (01) ==
LOC: UCEAST 08:44
DX: B02.9 Zoster without complications (principal); Z91.09 Other allergy status, other than to drugs and biological substances
CPT/HCPCS: 99212; G0463